=== PATIENT | female | born 1995 | race Two or more races ===

== ENCOUNTER 2022-06-09 14:07 | Emergency (ER) | payer OTHER, BC ==
[~2022-06-09] VITALS: Ht 162.6 cm; Wt 70.3 kg
[2022-06-09 14:10] VITALS: BP_SYST 145
--- NOTE | 2022-06-09 14:10 | NUR ---
BROUGHT BACK TO BED #5 AND TRIAGED. REPORT GIVEN TO TUNG
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
--- NOTE | 2022-06-09 14:35 | NUR ---
ER at bedside examining patient.
[2022-06-09] MEDS ORDERED: NAPR-690 PO (16:04)
--- NOTE | 2022-06-09 16:33 | NUR ---
Patient given written and verbal discharge instructions and verbalizes understanding. ER MD discussed with patient the results and treatment provided. Patient in stable condition. ID arm band removed. Rx of Naproxen given. Patient educated on pain management and to follow up with PMD. Pain Scale 2/10 Opportunity for questions provided and answered. Medication side effect fact sheet provided.
[2022-06-09 16:34] VITALS: BP_SYST 145
== END 2022-06-09 16:33 | disposition home or self-care (01) ==
LOC: SED 14:07
DX: S13.4XXA Sprain of ligaments of cervical spine, initial encounter (principal); S33.5XXA Sprain of ligaments of lumbar spine, initial encounter; S23.3XXA Sprain of ligaments of thoracic spine, initial encounter; Z79.899 Other long term (current) drug therapy; V49.40XA Driver injured in collision with unspecified motor vehicles in traffic accident, initial encounter; Y93.89 Activity, other specified; Y92.89 Other specified places as the place of occurrence of the external cause; Y99.8 Other external cause status
CPT/HCPCS: 72040-TC; 72072-TC; 72100-TC; 81025; 99284